=== PATIENT | male | born 1980 | race Caucasian/White ===

== ENCOUNTER 2017-07-31 04:19 | Emergency (ER) | payer OTHER ==
[~2017-07-31 04:19] MED LIST: ACE500 PO; ACETAMINOPHEN PO; AMO875 PO; CODE118S5 PO; HYDR-3078 PO; IBU800 PO; IBUPROFEN PO; ONDA4TAB97 PO; OSE75 PO; OXYC-865 PO; PER PO; TRA50 PO
[2017-07-31] MEDS ORDERED: ASPIRIN 81 MG CHEW CHEW ONE (04:30)
--- NOTE | 2017-07-31 04:32 | EKG ---
FACILITY: [facility] PATIENT NAME: ALDAIR SNOWDEN : [id number] MR: [id number] V: [id number] EXAM DATE: ORDERING PHYSICIAN: JOSE A PIERCE TECHNOLOGIST: Juma Turpin Reason : Blood Pressure : / mmHG Vent. Rate : 074 BPM Atrial Rate : 074 BPM P-R Int : 160 ms QRS Dur : 088 ms QT Int : 376 ms P-R-T Axes : 066 078 065 degrees QTc Int : 417 ms Normal sinus rhythm with sinus arrhythmia Normal ECG No previous ECGs available Confirmed by FILOMENA FISHER ([id number]) on 07/31/2017 6:27:47 AM Referred By: Confirmed By:FILOMENA FISHER
[2017-07-31] MEDS ORDERED: ONDANSETRON 4 MG/2 ML VIAL IVP ONE (04:35)
[2017-07-31] MEDS ORDERED: fentaNYL CITR 100 MCG/2 ML AMP IVP ONE (04:35)
--- NOTE | 2017-07-31 04:51 | ER Report ---
History and Physical Time Seen By MD: 04:25 Hx. of Stated Complaint: patient was woke up with pain in his left chest that radiates up to his shoulder, patient have increased shortness of breath and has tightness in chest. HPI/ROS CHIEF COMPLAINT: Left-sided chest pain HISTORY OF PRESENT ILLNESS: 36-year-old male smoker presents ambulatory to the ER complaining of left-sided sharp chest pain that feels like a horse kicked him in the chest with shortness of breath and nausea. Patient denies cardiac risk factors other than smoking. Patient has a history of gastritis. Patient notes a chronic cough for several months secondary to smoking. He notes no fevers. He notes no color change in his sputum. He denies leg swelling and calf pain. He thinks his pain is different than his usual gastritis pain. Patient denies ingestion of spicy food or alcohol. REVIEW OF SYSTEMS: Respiratory: No cough, no dyspnea. Cardiovascular: As above Gastrointestinal: No vomiting, no abdominal pain. Musculoskeletal: No back pain. Allergies: Coded Allergies: mustard (Verified Allergy, Severe, ANAPHYLAXIS, 07/31/17) Sulfa (Sulfonamide Antibiotics) (Verified Allergy, Mild, UNKNOWN REACTION CHILD, 07/31/17) zinc oxide (Verified Allergy, Mild, UNKNOWN REACTION CHILD, 07/31/17) hydrocodone (Verified Adverse Reaction, Mild, NAUSEA AND VOMITING , ) naproxen (Verified Adverse Reaction, Mild, VOMITING AND MIGRAINE, 07/31/17) tramadol (Verified Adverse Reaction, Mild, VOMITING AND MIGRAINE, 07/31/17) Home Meds Active Scripts Ondansetron Hcl (ZOFRAN) 4 Mg Tablet, 4 MG PO Q6H Y for NAUSEA/VOMITING, #10 Prov:JOSE A PIERCE DO 07/31/17 Discontinued Scripts Ondansetron Hcl (ZOFRAN) 4 Mg Tablet, 4 MG PO Q4H Y for NAUSEA/VOMITING, #10 Prov:JOSE A PIERCE DO 03/10/16 Reviewed Nurses Notes: Yes Old Medical Records Reviewed: Yes Hx Smoking: Yes Hx Substance Use Disorder: Yes (MARIJUANA) Hx Alcohol Use: Yes (OCC) Constitutional Vital Sign - Last 24 Hours 07/31/17 07/31/17 07/31/17 07/31/17 04:26 04:30 04:34 05:00 Temp 97.5 Pulse 63 65 Resp 20 19 B/P (MAP) 131/80 119/79 (92) 117/89 (98) Pulse Ox 90 90 O2 Delivery Room Air 07/31/17 07/31/17 07/31/17 05:04 05:19 05:27 Pulse 64 53 95 Resp 17 10 16 B/P (MAP) 117/68 (84) Pulse Ox 85 94 91 O2 Delivery Room Air Physical Exam General Appearance: The patient is alert, has no immediate need for airway protection and no current signs of toxicity.. Mild distress, slightly pale appearing, vital signs stable, pulse ox normal, afebrile HEENT: Pupils equal and round no injection. TMs normal, oropharynx without redness or exudate, mucous. Membranes are moist Respiratory: Chest is non tender, lungs are clear to auscultation. No wheezing or rails, no chest wall tenderness Cardiac: regular rate and rhythm, no murmur Gastrointestinal: Abdomen is soft and non tender, no masses, bowel sounds normal. Musculoskeletal: Neck: Neck is supple and non tender. No lymphadenopathy Extremities have full range of motion and are non tender. Skin: No rashes or lesions. DIFFERENTIAL DIAGNOSIS: After history and physical exam differential diagnosis was considered for chest pain including but not limited to myocardial ischemia, pericarditis pulmonary embolus, chest wall pain, pleural inflammation and pulmonary infectious causes. Medical Decision Making Data Points Result Diagram: 07/31/17 0437 07/31/17 0437 Laboratory Hematology Test 07/31/17 04:37 Red Blood Count 5.25 M/uL (4.00-5.60) Mean Corpuscular Volume 93.3 fL (80.0-96.0) Mean Corpuscular Hemoglobin 33.0 pg (26.0-33.0) Mean Corpuscular Hemoglobin Concent 35.4 g/dL (32.0-36.0) Red Cell Distribution Width 13.0 % (11.5-14.5) Mean Platelet Volume 7.8 fL (7.2-11.1) Neutrophils (%) (Auto) 58.5 % (39.4-72.5) Lymphocytes (%) (Auto) 31.4 % (17.6-49.6) Monocytes (%) (Auto) 7.1 % (4.1-12.4) Eosinophils (%) (Auto) 2.2 % (0.4-6.7) Basophils (%) (Auto) 0.8 % (0.3-1.4) Nucleated RBC Relative Count (auto) 0.0 /100WBC Neutrophils # (Auto) 4.3 K/uL (2.0-7.4) Lymphocytes # (Auto) 2.3 K/uL (1.3-3.6) Monocytes # (Auto) 0.5 K/uL (0.3-1.0) Eosinophils # (Auto) 0.2 K/uL (0.0-0.5) Basophils # (Auto) 0.1 K/uL (0.0-0.1) Nucleated RBC Absolute Count (auto) 0.00 K/uL D-Dimer Quantitative (PE/DVT) 0.30 ug/ml (0-0.50) Sodium Level 139 mmol/L (137-145) Potassium Level 3.6 mmol/L (3.5-5.0) Chloride Level 105 mmol/L (98-107) Carbon Dioxide Level 22 mmol/L (22-30) Blood Urea Nitrogen 15 mg/dl (9-21) Creatinine 0.90 mg/dl (0.66-1.25) Glomerular Filtration Rate Calc > 60.0 Random Glucose 101 mg/dl (75-110) Calcium Level 9.4 mg/dl (8.4-10.2) Total Bilirubin 0.7 mg/dl (0.2-1.3) Aspartate Amino Transf (AST/SGOT) 19 U/L (0-35) Alanine Aminotransferase (ALT/SGPT) 26 U/L (0-56) Alkaline Phosphatase 50 U/L (0-126) Troponin I < 0.012 ng/ml Total Protein 6.8 gm/dl (6.3-8.2) Albumin 4.2 g/dl (3.5-5.0) Chemistry Test 07/31/17 04:37 White Blood Count 7.3 k/uL (4.5-11.0) Red Blood Count 5.25 M/uL (4.00-5.60) Hemoglobin 17.3 g/dL (14.0-18.0) Hematocrit 49.0 % (42.0-52.0) Mean Corpuscular Volume 93.3 fL (80.0-96.0) Mean Corpuscular Hemoglobin 33.0 pg (26.0-33.0) Mean Corpuscular Hemoglobin Concent 35.4 g/dL (32.0-36.0) Red Cell Distribution Width 13.0 % (11.5-14.5) Platelet Count 175 K/uL (150-450) Mean Platelet Volume 7.8 fL (7.2-11.1) Neutrophils (%) (Auto) 58.5 % (39.4-72.5) Lymphocytes (%) (Auto) 31.4 % (17.6-49.6) Monocytes (%) (Auto) 7.1 % (4.1-12.4) Eosinophils (%) (Auto) 2.2 % (0.4-6.7) Basophils (%) (Auto) 0.8 % (0.3-1.4) Nucleated RBC Relative Count (auto) 0.0 /100WBC Neutrophils # (Auto) 4.3 K/uL (2.0-7.4) Lymphocytes # (Auto) 2.3 K/uL (1.3-3.6) Monocytes # (Auto) 0.5 K/uL (0.3-1.0) Eosinophils # (Auto) 0.2 K/uL (0.0-0.5) Basophils # (Auto) 0.1 K/uL (0.0-0.1) Nucleated RBC Absolute Count (auto) 0.00 K/uL D-Dimer Quantitative (PE/DVT) 0.30 ug/ml (0-0.50) Glomerular Filtration Rate Calc > 60.0 Calcium Level 9.4 mg/dl (8.4-10.2) Total Bilirubin 0.7 mg/dl (0.2-1.3) Aspartate Amino Transf (AST/SGOT) 19 U/L (0-35) Alanine Aminotransferase (ALT/SGPT) 26 U/L (0-56) Alkaline Phosphatase 50 U/L (0-126) Troponin I < 0.012 ng/ml Total Protein 6.8 gm/dl (6.3-8.2) Albumin 4.2 g/dl (3.5-5.0) Coagulation Test 07/31/17 04:37 D-Dimer Quantitative (PE/DVT) 0.30 ug/ml EKG/Imaging EKG Interpretation 12 lead EK Rhythm: normal sinus rhythm with sinus arrhythmia [place]: normal QRS: normal ST segments: normal, no evidence of ischemia or dysrhythmia Imaging X-ray: Two-view chest x-ray was obtained. I viewed the images myself on the PACS system. My interpretation of the images is: No infiltrate, no effusion, normal mediastinum. The radiologist interpretation had no clinically significant variation from this interpretation. ED Course/Re-evaluation Clinical Indication for ER IV: IV Access ED Course Patient was admitted to an examination room. H&P was done. The differential diagnoses was considered. Patient with acute onset of left-sided chest pain. He is a smoker. He denies family history cardiac disease. His EKG is unremarkable. He is treated with Zofran and fentanyl IV. He has a history of severe gastritis. His been having symptoms for over one year. He is following up with primary care. He is on Protonix. He states his symptoms are not acting up currently. This pain is different. He denies leg swelling or calf pain. His troponin. D-dimer and diagnostic laboratory studies are unremarkable. His chest x-ray is unremarkable. He feels much better after the medication. He'll be discharged home on Zofran. He has allergies to hydrocodone and tramadol. He is advised to use Tylenol for pain relief and apply heat to his chest wall. Decision to Disposition Date: Jul 31, 2017 Decision to Disposition Time: 05:22 Depart Departure Latest Vital Signs Vital Signs Date Time Temp Pulse Resp B/P (MAP) Pulse Ox O2 Delivery O2 Flow Rate FiO2 07/31/17 05:27 95 16 117/68 (84) 91 Room Air 07/31/17 04:26 97.5 Impression: Primary Impression: Chest pain of uncertain etiology Additional Impressions: Nausea History of gastritis Condition: Improved Disposition: HOME OR SELF-CARE Referrals: THU BUTLER MD New Scripts Ondansetron Hcl (ZOFRAN) 4 Mg Tablet 4 MG PO Q6H Y for NAUSEA/VOMITING, #10 Prov: JOSE A PIERCE DO 07/31/17 Patient Instructions: Chest Pain (ED) Additional Instructions: Follow-up with your primary care if unimproved in 3-5 days, some Problem Qualifiers JOSE A PIERCE DO Jul 31, 2017 04:51
[2017-07-31 04:54] LABS: PLATELET COUNT, AUTOMATED 175 K/uL (150-450)
--- NOTE | 2017-07-31 05:16 | RADIOLOGY IMAGING REPORT ---
FACILITY: [facility] PATIENT NAME: Carlos Thompson : 1980 MR: [id number] V: [id number] EXAM DATE: ORDERING PHYSICIAN: JOSE A PIERCE TECHNOLOGIST: Location: [facility] [place] Patient: Carlos Thompson : 1980 Visit/Account:[id number] Date of Sevice: 07/31/2017 CHEST PA AND LAT HISTORY: Left-sided chest pain radiating into left arm. History of smoking. COMPARISON: None. TECHNIQUE: PA and lateral views of the chest. FINDINGS: Pulmonary: Lungs are clear. There is no pneumothorax or pleural effusion. Cardiomediastinal: Cardiac and mediastinal silhouettes are within normal limits. Bones/soft tissues: No acute osseous abnormality. There is mild wedging of T11-L1, likely physiologic . The visible abdomen is normal. IMPRESSION: 1. No acute cardiopulmonary process. Report Dictated By: Clarisse Alvarez at 07/31/2017 5:09 AM Report E-Signed By: Clarisse Alvarez at 07/31/2017 5:11 AM WSN:[email or web address]
[2017-07-31] MEDS ORDERED: ONDA4TAB97 PO (05:24)
[2017-07-31 05:27] VITALS: BP 117/68
== END 2017-07-31 05:35 | disposition home or self-care (01) ==
LOC: ER 04:30
DX: R07.89 Other chest pain (principal); R11.0 Nausea; F17.210 Nicotine dependence, cigarettes, uncomplicated
CPT/HCPCS: 71046; 84484; 85025; 85379; 93005; 99284; J2405; J3010; 82040; 82247; 82310; 82374; 82435; 82565; 82947; 84075; 84132; 84155; 84295; 84450; 84460; 84520

== ENCOUNTER 2017-12-20 10:43 | Emergency (ER) | payer OTHER ==
[2017-12-20] MEDS ORDERED: PANT40TA65 PO (11:12)
[2017-12-20] MEDS ORDERED: KETOROLAC 15 MG/ML VIAL IVP ONE (11:25)
[2017-12-20] MEDS ORDERED: ONDANSETRON 4 MG/2 ML VIAL IVP ONE (11:25)
[2017-12-20] MEDS ORDERED: fentaNYL CITR 100 MCG/2 ML AMP IVP ONE (11:30)
--- NOTE | 2017-12-20 12:17 | RADIOLOGY IMAGING REPORT ---
[place] [facility] [place] NAME: Carlos Thompson : 1980 MR: [id number] V: [id number] EXAM DATE: ORDERING PHYSICIAN: GALI SILVER TECHNOLOGIST: [place] [facility] [place] Thompson : 1980 Visit/Account:[id number] Date of Sevice: 12/20/2017 EXAMINATION: CT Abdomen and Pelvis Without Contrast 12/20/2017 11:21 AM HISTORY: r flank pain TECHNIQUE: Renal stone protocol - Spiral scan was obtained through the kidneys, ureters and bladder without intravenous contrast. One of the following dose optimization techniques was utilized in the performance of this exam: Autom ated exposure control; adjustment of the mA and/or kV according to the patient's size; or use of an i terative reconstruction technique. Specific details can be referenced in the facility's radiology C T exam operational policy. COMPARISON STUDIES: none. FINDINGS: Right kidney and ureter: Mild hydronephrosis and hydroureter. 2 mm calcification probably at the righ t UVJ or possibly just passed into the bladder. No other calculus. Left kidney and ureter: Negative. No stone or obstruction. Bladder: Stone at or just past the right UVJ, as above. Liver / biliary: negative Pancreas: negative Spleen: negative Adrenal glands: negative Retroperitoneum: negative Pelvic structures: negative Bowel / peritoneum / mesenteries: Negative. Appendix is small or absent. Vessels: negative Musculoskeletal / Body wall: Lumbosacral spondylosis. Lymph node assessment: negative Lower chest: negative IMPRESSION: 2 mm stone either at or just past the right UVJ. Mild right collecting system dilatation. Otherwise u nremarkable study. Report Dictated By: Rodney De La Cruz MD at 12/20/2017 12:07 PM Report E-Signed By: Rodney De La Cruz MD at 12/20/2017 12:13 PM WSN:[id number]
--- NOTE | 2017-12-20 12:18 | ER Report ---
History and Physical Time Seen By MD: 11:15 Hx. of Stated Complaint: PT HAVING SEVERE RIGHT FLANK PAIN. PT IS DIAPHORETIC. HPI/ROS CHIEF COMPLAINT: Right flank pain HISTORY OF PRESENT ILLNESS:37-year-old male with plate of sudden onset right flank pain with radiation to the groin that occurred around 6 AM this morning. Patient's was seen in the [facility] physicians office had a urinalysis which showed hematuria all other indices negative. White blood cell count was 12.6 electrolytes were unremarkable. There was concern about possible kidney stone so the patient was sent to the emergency department for further evaluation. The patient reports 10 out of 10 severe right sided flank pain. He is unable to get in a comfortable position. He does report nausea. He states no similar episodes in the past. He denies fevers or chills. Of note it was shown that the patient has a slow heart rate in the upper 30s to mid 40s. There was some concern about his bradycardia as well. Constitutional No fever, no chills. Eyes: No discharge. ENT: No sore throat. Cardiovascular: No chest pain, no palpitations. Respiratory: No cough, no shortness of breath. Gastrointestinal: Right-sided flank pain with nausea and vomiting. Genitourinary: No hematuria. Musculoskeletal: No back pain. Skin: No rashes. Neurological: No headache. Allergies: Coded Allergies: mustard (Verified Allergy, Severe, ANAPHYLAXIS, 07/31/17) Sulfa (Sulfonamide Antibiotics) (Verified Allergy, Mild, UNKNOWN REACTION CHILD, 07/31/17) zinc oxide (Verified Allergy, Mild, UNKNOWN REACTION CHILD, 07/31/17) hydrocodone (Verified Adverse Reaction, Mild, NAUSEA AND VOMITING , 07/31/17) naproxen (Verified Adverse Reaction, Mild, VOMITING AND MIGRAINE, 07/31/17) tramadol (Verified Adverse Reaction, Mild, VOMITING AND MIGRAINE, 07/31/17) Home Meds Active Scripts Ondansetron Hcl (ZOFRAN) 4 Mg Tablet, 4 MG PO Q8H for Nausea, #15 TAB 0 Refills Prov:GALI SILVER MD 12/20/17 Oxycodone Hcl/Acetaminophen (PERCOCET 5-325 MG TABLET) 1 Each Tablet, 1-2 EACH PO Q6H for PAIN, #25 TAB 0 Refills no more than 6 tablest in 24 hours Prov:GALI SILVER MD 12/20/17 Ondansetron Hcl (ZOFRAN) 4 Mg Tablet, 4 MG PO Q6H PRN for NAUSEA/VOMITING, #10 Prov:JOSE A PIERCE 07/31/17 Reported Medications Pantoprazole Sodium (PANTOPRAZOLE SODIUM) 40 Mg Tablet.dr, 40 MG PO QDAY, TAB.SR 12/20/17 Past Medical/Surgical History No significant past medical history Hx Smoking: Yes Hx Substance Use Disorder: Yes (MARIJUANA) Hx Alcohol Use: Yes (OCC) Physical Exam General/Constitutional: Patient is awake, alert, nontoxic ears extremely uncomfortable and unable to find a position of comfort. Head: Normocephalic and atraumatic. Eyes: Conjunctival clear, Pupils are equal and reactive to light. Extraocular muscles are intact and symmetrical. Sclera are clear and anicteric. Ears:External canals are clear. Tympanic membranes are clear with normal landmarks and light reflex. Nares: No rhinorrhea or bleeding. Turbinates are pink and moist. Oropharyngeal: Mucous membranes are moist. Neck: Supple, no adenopathy. Cardiovascular: Heart is regular rate and rhythm without audible murmurs, rubs or gallops. Pulmonary: Lungs are clear to auscultation bilaterally. There are no wheezes, rales, or rhonchi. Chest rise is symmetrical Abdomen: Soft, no guarding or peritoneal signs. Right CVA tenderness Extremities: No gross deformities, No peripheral cyanosis. Able to move all 4 extremities. Neuro: Alert and oriented X3, Skin: No rashes, skin is warm dry and well perfused. Medical Decision Making EKG/Imaging EKG Interpretation EKG shows sinus bradycardia with rate of 38 bpm. Monitor Interpretation: Sinus Bradycardia Imaging [place] [facility] [place]: [place] : 1980 MR: [id number] V: [id number] EXAM DATE: ORDERING PHYSICIAN: GALI SILVER TECHNOLOGIST: Location: [facility] Patient: Carlos Thompson : 1980 Visit/Account:[id number] Date of Sevice: 12/20/2017 EXAMINATION: CT Abdomen and Pelvis Without Contrast 12/20/2017 11:21 AM HISTORY: r flank pain TECHNIQUE: Renal stone protocol - Spiral scan was obtained through the kidneys, ureters and bladder without intravenous contrast. One of the following dose optimization techniques was utilized in the performance of this exam: Automated exposure control; adjustment of the mA and/or kV according to the patient's size; or use of an iterative reconstruction technique. Specific details can be referenced in the facility's radiology CT exam operational policy. COMPARISON STUDIES: none. FINDINGS: Right kidney and ureter: Mild hydronephrosis and hydroureter. 2 mm calcification probably at the right UVJ or possibly just passed into the bladder. No other calculus. Left kidney and ureter: Negative. No stone or obstruction. Bladder: Stone at or just past the right UVJ, as above. Liver / biliary: negative Pancreas: negative Spleen: negative Adrenal glands: negative Retroperitoneum: negative Pelvic structures: negative Bowel / peritoneum / mesenteries: Negative. Appendix is small or absent. Vessels: negative Musculoskeletal / Body wall: Lumbosacral spondylosis. Lymph node assessment: negative Lower chest: negative IMPRESSION: 2 mm stone either at or just past the right UVJ. Mild right collecting system dilatation. Otherwise unremarkable study. Report Dictated By: Rodney De La Cruz MD at 12/20/2017 12:07 PM Report E-Signed By: Rodney De La Cruz MD at 12/20/2017 12:13 PM WSN:[id number] ED Course/Re-evaluation ED Course 12/20/2017 12:17:40 pm bedside ultrasound was performed which shows right-sided hydronephrosis. Plan will be IV pain medication bloodwork from [facility] was sent over so there is no need to repeat. We will perform a nonco ntrast CT of the abdomen and pelvis. We will attempt to get the patient more comfortable. Re-evaluation 12/20/2017 12:28:14 pm patient's current heart rate on monitors 58 bpm. He is feeling much improved after pain medicine and Zofran. Feel that the patient may have had a vasovagal type response secondary to pain causing the bradycardia. EKG shows a sinus bradycardia not any other abnormalities. He is not having chest pain or dizziness symptoms. I feel that he can follow up with his primary care provider for recheck of his heart rate. Plan at this time will be discharged home patient with a [address] on Percocet and Zofran. We'll have him follow-up with routinely as an outpatient Decision to Disposition Date: Dec 20, 2017 Decision to Disposition Time: 12:32 Depart Departure Impression: Primary Impression: Ureterolithiasis Condition: Improved Disposition: HOME OR SELF-CARE Referrals: TIA CROWDER MD schedule a follow up appointment in the next 30 days for new onset kidney stones New Scripts Ondansetron Hcl (ZOFRAN) 4 Mg Tablet 4 MG PO Q8H for Nausea, #15 TAB 0 Refills Prov: GALI SILVER MD 12/20/17 Oxycodone Hcl/Acetaminophen (PERCOCET 5-325 MG TABLET) 1 Each Tablet 1-2 EACH PO Q6H for PAIN, #25 TAB 0 Refills no more than 6 tablest in 24 hours Prov: GALI SILVER MD 12/20/17 Departure Forms: ER Transition Record, Medications Reconciliation, Off Work/School Form, School or Work Release?: Work Number of days to be released: 2 Patient Portal Information Patient Instructions: Kidney Stones (ED) GALI SILVER MD Dec 20, 2017 12:18
[2017-12-20] MEDS ORDERED: OXYC-865 PO (12:30)
[2017-12-20] MEDS ORDERED: ONDA4TAB97 PO (12:30)
[2017-12-20 12:45] VITALS: BP 114/76
--- NOTE | 2017-12-21 12:45 | EKG ---
FACILITY: [facility] [place] PATIENT NAME: ALDAIR SNOWDEN : [id number] MR: [id number] V: [id number] EXAM DATE: ORDERING PHYSICIAN: GALI SILVER TECHNOLOGIST: Test Reason : Blood Pressure : / mmHG Vent. Rate : 038 BPM Atrial Rate : 038 BPM P-R Int : 132 ms QRS Dur : 100 ms QT Int : 500 ms P-R-T Axes : 044 082 078 degrees QTc Int : 397 ms Marked sinus bradycardia Abnormal ECG When compared with ECG of 31-JUL-2017 04:27, Vent. rate has decreased BY 36 BPM Confirmed by Jerad Coleman ([id number]) on 12/21/2017 2:04:49 PM Referred By: Confirmed By:Jerad Guallpa
== END 2017-12-20 12:55 | disposition home or self-care (01) ==
LOC: ER 11:10
DX: N13.2 Hydronephrosis with renal and ureteral calculous obstruction (principal); R00.1 Bradycardia, unspecified
CPT/HCPCS: 74176; 93005; 96374; 96375; 99284; J1885; J2405; J3010

== ENCOUNTER → 2018-01-07 | Outpatient (CLI) | payer OTHER ==
[~2018-01-07] MED LIST changes: +ACET500T68 PO; +PANT40TA65 PO
--- NOTE | 2018-01-07 15:07 | RADIOLOGY IMAGING REPORT ---
FACILITY: [facility] - [place] PATIENT NAME: Carlos Thompson : 1980 MR: [id number] V: [id number] EXAM DATE: ORDERING PHYSICIAN: SHAW MARTINEZ TECHNOLOGIST: Location: [facility] Patient: Carlos Thompson : 1980 Visit/Account:[id number] Date of Sevice: 01/07/2018 CT abdomen and pelvis without IV contrast History: Right-sided flank pain COMPARISON STUDIES: none. TECHNIQUE: Axial CT images were obtained through the abdomen and pelvis without intravenous contras t. Reformatted coronal and sagittal images were also obtained. One of the following dose optimization techniques was utilized in the performance of this exam: Autom ated exposure control; adjustment of the mA and/or kV according to the patient's size; or use of an i terative reconstruction technique. Specific details can be referenced in the facility's radiology C T exam operational policy. FINDINGS: Chest bases: Negative Liver: Normal. Spleen: size is normal. Gallbladder and bile ducts: Gallbladder is present. Bile ducts are normal caliber. Pancreas: negative Adrenal glands: negative Kidneys: There are no kidney or ureter stones or hydronephrosis. Renal parenchymal thickness is pre served. Pelvic structures: There are no bladder stones. Bowel and mesenteries: Small bowel and colon are unremarkable. The appendix is not visualized. No abdominal or pelvic inflammatory changes are seen. Ascites: None Vessels: negative Musculoskeletal: Moderate degenerative disc change at the lumbosacral junction. Body wall: negative Lymph node assessment: negative IMPRESSION: No CT finding to explain abdominal pain. Report Dictated By: Yokasta Murray MD at 01/07/2018 3:00 PM Report E-Signed By: Yokasta Murray MD at 01/07/2018 3:04 PM WSN:[email or web address]
== END ==
LOC: CT 13:23
PROVIDERS: ATTEND Urology
DX: M47.897 Other spondylosis, lumbosacral region (principal)
CPT/HCPCS: 74176

== ENCOUNTER 2018-07-29 09:36 | Emergency (ER) | payer OTHER ==
[2018-07-29 10:16] LABS: PLATELET COUNT, AUTOMATED 236 K/uL (150-450)
--- NOTE | 2018-07-29 10:16 | ER Report ---
History and Physical Time Seen By MD: 10:00 Hx. of Stated Complaint: patient states stomach issues for last year. on zofran and pantoprazole. states within the last 2 months the stomach pain has increased. N/V in mornings, wakes up coughing and starts to throw up. HPI/ROS CHIEF COMPLAINT: Abdominal pain HISTORY OF PRESENT ILLNESS: 37-year-old male presents with abdominal pain. Patient states he has been dealing with left upper abdominal pain for 3 years. It is been worse for 2-1/2 weeks. He has seen his primary provider multiple times and has been referred to Dr. Tyler. He has a appointment on August 03 and probable endoscopy. Patient states he wakes up most mornings vomiting a couple times. He states that vomiting is typically phlegm and yellowish. He woke up and vomited this morning, called his primary doctor, and the nurse referred him here. Patient has intermittent constipation and loose stools, though no recent bloody or black stools. He admits to daily tobacco and marijuana use for over 20 years. He denies alcohol or other drugs. He is on omeprazole and suffocate which he takes daily. He has no new or different pain, though states that it has been constant for at least 2-1/2 weeks. REVIEW OF SYSTEMS: Constitutional: No fever, no chills. Eyes: No discharge. ENT: No sore throat. Cardiovascular: No chest pain, no palpitations. Respiratory: No cough, no shortness of breath. Gastrointestinal: above Genitourinary: no dysuria Musculoskeletal: No back pain. Skin: No rashes. Neurological: No headache. Remainder of the 14 system rev: Yes Allergies: Coded Allergies: mustard (Verified Allergy, Severe, ANAPHYLAXIS, 07/29/18) Sulfa (Sulfonamide Antibiotics) (Verified Allergy, Mild, UNKNOWN REACTION CHILD, 07/29/18) zinc oxide (Verified Allergy, Mild, UNKNOWN REACTION CHILD, 07/29/18) hydrocodone (Verified Adverse Reaction, Mild, NAUSEA AND VOMITING , 07/29/18) naproxen (Verified Adverse Reaction, Mild, VOMITING AND MIGRAINE, 07/29/18) tramadol (Verified Adverse Reaction, Mild, VOMITING AND MIGRAINE, 07/29/18) Home Meds Active Scripts Ondansetron Hcl (ZOFRAN) 4 Mg Tablet, 4 MG PO Q8H for Nausea, #15 TAB 0 Refills Prov:GALI SILVER MD 12/20/17 Reported Medications Acetaminophen (TYLENOL EXTRA STRENGTH) 500 Mg Tablet, 1000 MG PO PRN PRN for PAIN, TAB 01/07/18 Pantoprazole Sodium (PANTOPRAZOLE SODIUM) 40 Mg Tablet.dr, 40 MG PO QDAY, TAB.SR 12/20/17 Discontinued Scripts Oxycodone Hcl/Acetaminophen (PERCOCET 5-325 MG TABLET) 1 Each Tablet, 1-2 EACH PO Q6H for PAIN, #25 TAB 0 Refills no more than 6 tablest in 24 hours Prov:GALI SILVER MD 12/20/17 Reviewed Nurses Notes: Yes Old Medical Records Reviewed: Yes Hx Smoking: Yes (smoker 20 years 1-1.25 ppd) Hx Substance Use Disorder: No (MARIJUANA) Hx Alcohol Use: No Constitutional Vital Sign - Last 24 Hours 07/29/18 07/29/18 07/29/18 07/29/18 09:41 10:00 10:30 11:00 Temp 98.1 Pulse 78 81 78 62 Resp 18 B/P (MAP) 127/84 129/85 (100) 108/87 (94) 110/82 (91) Pulse Ox 93 94 90 90 O2 Delivery Room Air Physical Exam General Appearance: The patient is alert, has no immediate need for airway protection and no signs of toxicity. Eyes: Pupils equal and round no pallor or injection. ENT, Mouth: Mucous membranes are moist. Respiratory: There are no retractions, lungs are clear to auscultation. Cardiovascular: Regular rate and rhythm. Gastrointestinal: left upper quadrant ttp, no peritoneal sgs, abd nondistended. No other focal ttp. Neurological: alert, moves all ext Skin: Warm and dry, no rashes. Musculoskeletal: Extremities are nontender, nonswollen and have full range of motion. Pt smells of tobacco and marijuana DIFFERENTIAL DIAGNOSIS: After history and physical exam differential diagnosis was considered for abdominal pain including but not limited to appendicitis, cholecystitis, gastritis and urinary tract infection, complication of PUD, pancreatitis. Medical Decision Making Data Points Result Diagram: 07/29/1845 07/29/18 0945 Laboratory Hematology Test 07/29/18 09:42 07/29/18 09:45 Urine Color Yellow Urine Clarity Clear Urine pH 7.0 pH (4.8-9.5) Urine Specific [place] 1.018 Urine Protein Negative mg/dL (NEGATIVE) Urine Glucose (UA) Negative mg/dL (NEGATIVE) Urine Ketones Negative mg/dL (NEGATIVE) Urine Blood Small (NEGATIVE) Urine Nitrite Negative (NEGATIVE) Urine Bilirubin Negative (NEGATIVE) Urine Urobilinogen Negative mg/dL (0.2-1.9) Urine Leukocyte Esterase Negative (NEGATIVE) Urine RBC <1 /HPF (0-2/HPF) Urine WBC <1 /HPF (0-5/HPF) Urine Squamous Epithelial Cells None /LPF (</=FEW) Urine Bacteria Negative /HPF (NONE-FEW) Urine Mucus None /HPF (NONE-FEW) Red Blood Count 5.85 M/uL (4.00-5.60) Mean Corpuscular Volume 94.3 fL (80.0-96.0) Mean Corpuscular Hemoglobin 31.9 pg (26.0-33.0) Mean Corpuscular Hemoglobin Concent 33.8 g/dL (32.0-36.0) Red Cell Distribution Width 13.4 % (11.5-14.5) Mean Platelet Volume 7.9 fL (7.2-11.1) Neutrophils (%) (Auto) 60.1 % (39.4-72.5) Lymphocytes (%) (Auto) 31.5 % (17.6-49.6) Monocytes (%) (Auto) 5.8 % (4.1-12.4) Eosinophils (%) (Auto) 2.0 % (0.4-6.7) Basophils (%) (Auto) 0.6 % (0.3-1.4) Nucleated RBC Relative Count (auto) 0.1 /100WBC Neutrophils # (Auto) 5.3 K/uL (2.0-7.4) Lymphocytes # (Auto) 2.8 K/uL (1.3-3.6) Monocytes # (Auto) 0.5 K/uL (0.3-1.0) Eosinophils # (Auto) 0.2 K/uL (0.0-0.5) Basophils # (Auto) 0.1 K/uL (0.0-0.1) Nucleated RBC Absolute Count (auto) 0.01 K/uL Sodium Level 140 mmol/L (137-145) Potassium Level 4.1 mmol/L (3.5-5.0) Chloride Level 105 mmol/L (98-107) Carbon Dioxide Level 27 mmol/L (22-30) Blood Urea Nitrogen 18 mg/dl (9-21) Creatinine 0.90 mg/dl (0.66-1.25) Glomerular Filtration Rate Calc > 60.0 Random Glucose 97 mg/dl (75-110) Calcium Level 9.7 mg/dl (8.4-10.2) Total Bilirubin 0.6 mg/dl (0.2-1.3) Aspartate Amino Transf (AST/SGOT) 24 U/L (0-35) Alanine Aminotransferase (ALT/SGPT) 29 U/L (0-56) Alkaline Phosphatase 60 U/L (0-126) Total Protein 8.0 g/dl (6.3-8.2) Albumin 5.0 g/dl (3.5-5.0) Lipase 95 U/L (23-300) Chemistry Test 07/29/18 09:42 07/29/18 09:45 Urine Color Yellow Urine Clarity Clear Urine pH 7.0 pH (4.8-9.5) Urine Specific [place] 1.018 Urine Protein Negative mg/dL (NEGATIVE) Urine Glucose (UA) Negative mg/dL (NEGATIVE) Urine Ketones Negative mg/dL (NEGATIVE) Urine Blood Small (NEGATIVE) Urine Nitrite Negative (NEGATIVE) Urine Bilirubin Negative (NEGATIVE) Urine Urobilinogen Negative mg/dL (0.2-1.9) Urine Leukocyte Esterase Negative (NEGATIVE) Urine RBC <1 /HPF (0-2/HPF) Urine WBC <1 /HPF (0-5/HPF) Urine Squamous Epithelial Cells None /LPF (</=FEW) Urine Bacteria Negative /HPF (NONE-FEW) Urine Mucus None /HPF (NONE-FEW) White Blood Count 8.8 k/uL (4.5-11.0) Red Blood Count 5.85 M/uL (4.00-5.60) Hemoglobin 18.7 g/dL (14.0-18.0) Hematocrit 55.2 % (42.0-52.0) Mean Corpuscular Volume 94.3 fL (80.0-96.0) Mean Corpuscular Hemoglobin 31.9 pg (26.0-33.0) Mean Corpuscular Hemoglobin Concent 33.8 g/dL (32.0-36.0) Red Cell Distribution Width 13.4 % (11.5-14.5) Platelet Count 236 K/uL (150-450) Mean Platelet Volume 7.9 fL (7.2-11.1) Neutrophils (%) (Auto) 60.1 % (39.4-72.5) Lymphocytes (%) (Auto) 31.5 % (17.6-49.6) Monocytes (%) (Auto) 5.8 % (4.1-12.4) Eosinophils (%) (Auto) 2.0 % (0.4-6.7) Basophils (%) (Auto) 0.6 % (0.3-1.4) Nucleated RBC Relative Count (auto) 0.1 /100WBC Neutrophils # (Auto) 5.3 K/uL (2.0-7.4) Lymphocytes # (Auto) 2.8 K/uL (1.3-3.6) Monocytes # (Auto) 0.5 K/uL (0.3-1.0) Eosinophils # (Auto) 0.2 K/uL (0.0-0.5) Basophils # (Auto) 0.1 K/uL (0.0-0.1) Nucleated RBC Absolute Count (auto) 0.01 K/uL Glomerular Filtration Rate Calc > 60.0 Calcium Level 9.7 mg/dl (8.4-10.2) Total Bilirubin 0.6 mg/dl (0.2-1.3) Aspartate Amino Transf (AST/SGOT) 24 U/L (0-35) Alanine Aminotransferase (ALT/SGPT) 29 U/L (0-56) Alkaline Phosphatase 60 U/L (0-126) Total Protein 8.0 g/dl (6.3-8.2) Albumin 5.0 g/dl (3.5-5.0) Lipase 95 U/L (23-300) Urinalysis Test 07/29/18 09:42 Urine Color Yellow Urine Clarity Clear Urine pH 7.0 pH (4.8-9.5) Urine Specific [place] 1.018 Urine Protein Negative mg/dL (NEGATIVE) Urine Glucose (UA) Negative mg/dL (NEGATIVE) Urine Ketones Negative mg/dL (NEGATIVE) Urine Blood Small (NEGATIVE) Urine Nitrite Negative (NEGATIVE) Urine Bilirubin Negative (NEGATIVE) Urine Urobilinogen Negative mg/dL (0.2-1.9) Urine Leukocyte Esterase Negative (NEGATIVE) Urine RBC <1 /HPF (0-2/HPF) Urine WBC <1 /HPF (0-5/HPF) Urine Squamous Epithelial Cells None /LPF (</=FEW) Urine Bacteria Negative /HPF (NONE-FEW) Urine Mucus None /HPF (NONE-FEW) ED Course/Re-evaluation ED Course Pt presents with ongoing abd pain without new/diff symptoms today, under w/up from primary doctor and surgeon, endoscopy reportedly planned. Presents b/c nurse at [facility] recommended he come to ED for 'testing'. Pt has benign exam findings c/w suspected PUD/upper gi disease c/w his current care. Labs unremarkable for acute findings. No e/o acute abdomen. Pt comfortable for f/u as currently planned, tolerates po in ED. Decision to Disposition Date: Jul 29, 2018 Decision to Disposition Time: 11:21 Depart Departure Latest Vital Signs Vital Signs Date Time Temp Pulse Resp B/P (MAP) Pulse Ox O2 Delivery O2 Flow Rate FiO2 07/29/18 11:00 62 110/82 (91) 90 07/29/18 09:41 98.1 18 Room Air Impression: Primary Impression: Abdominal pain Condition: Improved Disposition: HOME OR SELF-CARE Patient Instructions: Abdominal Pain (ED) Additional Instructions: As we discussed, your labs are unremarkable today. You have established follow- up with Dr. Tyler. Please make sure you make this appointment. Please return if you have worsening symptoms, uncontrolled pain, vomiting and not tolerating fluids, or other concerns. Problem Qualifiers Primary Impression: Abdominal pain Abdominal location: left upper quadrant Qualified Codes: R10.12 - Left upper quadrant pain GALI ROJAS MD Jul 29, 2018 10:15
[2018-07-29 11:00] VITALS: BP 110/82
== END 2018-07-29 11:24 | disposition home or self-care (01) ==
LOC: ER 09:58
DX: R10.12 Left upper quadrant pain (principal)
CPT/HCPCS: 81001; 82040; 82247; 82310; 82374; 82435; 82565; 82947; 83690; 84075; 84132; 84155; 84295; 84450; 84460; 84520; 85025; 99282

== ENCOUNTER 2018-08-16 00:59 | Day surgery (SDC) | payer OTHER ==
[~2018-08-16] VITALS: Ht 177.8 cm; Wt 73.9 kg
[~2018-08-16 00:59] MED LIST changes: +SUCR1TAB85 PO
[2018-08-16] MEDS ORDERED: NORMOSOL R SOLN(*) 1000 ML BAG 1,000 ML IV PRN (06:30)
[2018-08-16] MEDS ORDERED: LIDOCAINE/SOD BICARB 8.4% SYR ID ONE (06:30)
[2018-08-16 06:50] VITALS: BP 113/69
[2018-08-16] MEDS ORDERED: PROPOFOL EMUL(*) 10MG/ML 20 ML 60 ML ONE (07:00)
[2018-08-16] MEDS ORDERED: LIDOCAINE MPF 1% 5 ML VIAL ONE (07:00)
[2018-08-16 07:56] VITALS: BP 99/60
--- NOTE | 2018-08-16 07:56 | NUR ---
0756 SBAR REPORT WAS RECEIVED FROM NIC AND DR. BARAJAS. PATIENT IS BREATHING SPONTANEOUSLY AT A MODERATE RATE AND DEPTH. HE ARRIVED ON 10 LITERS OXYMASK. THIS WAS TURNED DOWN TO 2 LITERS ON ARRIVAL. BOWEL SOUNDS ARE HYPERACTIVE. PATIENT IS SLEEPING UNABLE TO ASSESS PAIN OR NAUSEA. IV WAS SALINE LOCKED. 0800 PATIENT WAKE UP AND DENIES ANY PAIN OR NAUSEA. 0804 O2 WAS REMOVED AND PATIENT BEGAN DRINKING WATER
--- NOTE | 2018-08-16 08:03 | Short(Outpt) Discharge Summary ---
Discharge Summary Reason for Hosp/Final Diag: (1) Nausea Status: Acute Hospital Course & Plan: vomiting pt presented for egd and colonoscopy. he tolerated the procedures well. path pending. he will be discharged home when criteria met. (2) Abdominal pain Status: Acute Departure Discharge to: Home Discharge Instructions Home Meds Active Scripts Ondansetron Hcl (ZOFRAN) 4 Mg Tablet, 4 MG PO Q8H for Nausea, #15 TAB 0 Refills Prov:GALI ISLVER MD 12/20/17 Reported Medications Sucralfate (CARAFATE) 1 Gm Tablet, 1 GM PO TID 08/10/18 Acetaminophen (TYLENOL EXTRA STRENGTH) 500 Mg Tablet, 1000 MG PO PRN PRN for PAIN, TAB 01/07/18 Pantoprazole Sodium (PANTOPRAZOLE SODIUM) 40 Mg Tablet.dr, 40 MG PO QDAY, TAB.SR 12/20/17 Diet: Regular Activity: As Tolerated Special Instructions: we will you in 10 days with biopsy results. SEMAJ ORTEGA August 16, 2018 08:03
[2018-08-16 08:14] VITALS: BP 100/76
--- NOTE | 2018-08-16 08:16 | NUR ---
RN INTO ROOM. PT. ALERT AND ORIENTED. TOLERATING PO INTAKE. DECLINED SITTING AND STANDING AT THIS STANDING AT THIS TIME. DECLINED ADDITIONAL PO INTAKE.
[2018-08-16 08:48] VITALS: BP 102/64
[2018-08-16 08:50] VITALS: BP 107/76
--- NOTE | 2018-08-16 09:03 | OPERATIVE REPORT 1 ---
EVENT DATE: August 16, 2018 SURGEON: Roland Small MD ANESTHESIOLOGIST: Kendall Burk MD ANESTHESIA: MAC. PEST CONTROL SERVICE TECHNICIAN: None. PREOPERATIVE DIAGNOSIS Vomiting, diarrhea and abdominal pain. POSTOPERATIVE DIAGNOSIS 1. Vomiting, diarrhea and abdominal pain. 2. Gastritis. 3. Colon polyp. PROCEDURE PERFORMED Esophagogastrodudenoscopy with biopsies and colonoscopy with biopsies. FLUIDS IV crystalloids. ESTIMATED BLOOD LOSS Minimal. SPECIMENS Raw specimens from first portion of duodenum, antrum and GE junction, random colon biopsies and transverse colon polyp. COMPLICATIONS None. INDICATIONS This is a 38-year old male with chronic vomiting. He also has alternating diarrhea and constipation and some abdominal pain. Risks and benefits of the procedure were explained and consent was signed. DESCRIPTION OF PROCEDURE Patient was taken to the suite and placed in the supine position. MAC anesthesia was administered per the Anesthesia team. The patient was placed in the left lateral position. Bite block was placed. The gastroscope was advanced through the oropharynx, down the esophagus and into the stomach. There was mild diffuse gastritis throughout the stomach with the worse of it being in the antrum. Retroflexion was otherwise unremarkable. The scope was passed into the first and second portion of the duodenum. Second portion was within normal limits. There was some mild inflammation of the first portion of the duodenum. Biopsies were taken from the first portion of the duodenum. Biopsies were also taken for histology and H. pylori from the antrum. There was no hiatal hernia. The Z-line was sharp. I did take a biopsy from the GE junction. The insufflation was suctioned from the stomach and the gastroscope was withdrawn. The esophagus was within normal limits. Patient tolerated this portion of the procedure well. A digital rectal exam and perianal exam were then performed. These were within normal limits. The colonoscope was advanced from the anus into the terminal ileum under direct vision. Terminal ileum appeared normal. Biopsy was taken. The appendiceal orifice and ileocecal valve were seen as well as the area behind the ileocecal valve. The colonoscope was slowly withdrawn, examining the mucosa along the entire length of the colon. There were no polyps, colitis or masses. Overall, the exam had a normal appearance of the colon and terminal ileum. Random biopsies were taken from the colon and rectum. Carbon dioxide was suctioned from the colon prior to withdrawing the scope. The patient tolerated the procedure well. There were no complications. [facility]
== END 2018-08-16 09:00 | disposition home or self-care (01) ==
LOC: OR 00:59
PROVIDERS: ATTEND Surgery
DX: K29.70 Gastritis, unspecified, without bleeding (principal); K63.5 Polyp of colon; R11.10 Vomiting, unspecified; R19.7 Diarrhea, unspecified; R10.9 Unspecified abdominal pain
CPT/HCPCS: 00813; 43239; 45380; 87077; 88305; 88313; 88342; J2001; J2704